=== PATIENT | male | born 1980 | race Caucasian/White ===

== ENCOUNTER 2017-08-06 16:16 | Emergency (ER) | payer OTHER | END 2017-08-06 19:48 | disposition home or self-care (01) | LOC: ER 16:16 | DX: T58.91XA Toxic effect of carbon monoxide from unspecified source, accidental (unintentional), initial encounter (principal); Y93.89 Activity, other specified; Y99.8 Other external cause status; Y92.69 Other specified industrial and construction area as the place of occurrence of the external cause | CPT/HCPCS: 36600; 93005; 99283-25 ==